=== PATIENT | male | born 1950 | race Caucasian/White ===

== ENCOUNTER 2016-05-25 08:00 | Day surgery (SDC) | payer OTHER ==
[2016-05-25] MEDS ORDERED: PROPOFOL 20 ML ONE ×2 (08:03)
[2016-05-25 10:09] VITALS: TEMP 98.2
[2016-05-25 10:22] VITALS: BP 102/54; PULSE 58
== END 2016-05-25 11:07 | disposition home or self-care (01) ==
LOC: FASU-ENDO 08:00
PROVIDERS: ATTEND Internal Medicine Gastroenterology
PROC: 0DJD8ZZ Inspection of Lower Intestinal Tract, Via Natural or Artificial Opening Endoscopic (ICD-10-PCS; principal; 2016-05-25 09:39)
DX: Z12.11 Encounter for screening for malignant neoplasm of colon (principal); Z80.0 Family history of malignant neoplasm of digestive organs

== ENCOUNTER 2022-08-31 07:47 | Day surgery (SDC) | payer BC ==
[2022-08-30 15:44] VITALS: BMI 19.8
[2022-08-31 07:58] VITALS: RESP 20
[2022-08-31] MEDS ORDERED: PROPOFOL 120 ML ONE (07:59)
[2022-08-31] MEDS ORDERED: LIDOCAINE HCL/PF 2% SDV 5ML VIAL ONE (07:59)
[2022-08-31 08:54] VITALS: TEMP 97.2
[2022-08-31 09:07] VITALS: BP 98/68; PULSE 64
== END 2022-08-31 09:05 | disposition home or self-care (01) ==
LOC: FASU-ENDO 07:47
PROVIDERS: ATTEND Internal Medicine Gastroenterology
PROC: 0DJD8ZZ Inspection of Lower Intestinal Tract, Via Natural or Artificial Opening Endoscopic (ICD-10-PCS; principal; 2022-08-31 08:09)
DX: Z12.11 Encounter for screening for malignant neoplasm of colon (principal); Z80.0 Family history of malignant neoplasm of digestive organs

== ENCOUNTER 2022-12-18 17:35 | Emergency (ER) | payer BC, MEDICARE ==
[2022-12-18] MEDS ORDERED: SODIUM CHLORIDE 1,000 ML IV STA ×2 (17:43→18:03)
[2022-12-18] MEDS ORDERED: ACETAMINOPHEN 1000 MG/100 ML BAG IVPB ONE (17:43)
[2022-12-18] MEDS ORDERED: ACETAMINOPHEN INJECTION 100 ML IVPB ONE (17:46)
[2022-12-18 17:54] LABS: HEMATOCRIT 39.8 % (35.4-49); HEMOGLOBIN 13.1 G/dL (11.7-16.9); MCH 30.7 pg (25.7-33.7); MCHC 32.9 g/dl (32.0-35.9); MEAN CELL VOLUME 93.1 fl (80-96); MEAN PLT VOLUME 7.9 fl (7.5-11.1); PLATELET COUNT 520.5 10^3/uL (134-434); RBC 4.27 10^6/uL (4.00-5.60); RDW 14.9 % (11.9-15.9); WHITE BLOOD COUNT 13.5 10^3/uL (4.0-10.8)
[2022-12-18] MEDS ORDERED: AZITHROMYCIN 500 MG TABLET PO ONE (18:12)
[2022-12-18] MEDS ORDERED: AZITHROMYCIN 500 MG TABLET ONE (18:15)
[2022-12-18 18:27] LABS: ALBUMIN 3.9 g/dl (3.4-5.0); BILIRUBIN,TOTAL 0.4 mg/dl (0.2-1); BLOOD UREA NITROGEN 13.1 mg/dl (7-18); CALCIUM 9.1 mg/dl (8.5-10.1); CREATININE 0.8 mg/dl (0.6-1.3); POTASSIUM 3.9 mmol/L (3.5-5.1); SGOT/AST 15.2 U/L (15-37); SGPT/ALT 9.3 U/L (7-52); TOT PROT 6.8 g/dl (6.4-8.2)
[2022-12-18 18:41] VITALS: RESP 18; TEMP 98; BMI 19.3
[2022-12-18 18:57] VITALS: BP 115/79; PULSE 65
== END 2022-12-18 19:13 | disposition home or self-care (01) ==
LOC: FER 17:35
PROC: 3E033NZ Introduction of Analgesics, Hypnotics, Sedatives into Peripheral Vein, Percutaneous Approach (ICD-10-PCS; principal; 2022-12-18)
PROC: 3E0337Z Introduction of Electrolytic and Water Balance Substance into Peripheral Vein, Percutaneous Approach (ICD-10-PCS; 2022-12-18)
DX: R07.9 Chest pain, unspecified (principal); R05.9 Cough, unspecified; J18.9 Pneumonia, unspecified organism; Z20.822 Contact with and (suspected) exposure to COVID-19
CPT/HCPCS: 0241U-QW; 36415; 71045-TC-FY; 80053; 84484; 85027; 93005; 99285-25

== ENCOUNTER 2023-06-16 09:09 | Emergency (ER) | payer BC, MEDICARE ==
[2023-06-16 09:37] VITALS: RESP 20; TEMP 97.5; BMI 18.9
[2023-06-16] MEDS ORDERED: PSEUDOEPHEDRINE HCL 30 MG TABLET ONE (09:42)
[2023-06-16] MEDS ORDERED: MECLIZINE HCL 25 MG TABLET (FP) ONE (09:42)
[2023-06-16] MEDS ORDERED: ALBUTEROL SO4 2.5/IPRATROPIUM 0.5 INH SOL 3 ML VIAL.NEB. NEB ONE ×2 (09:42→13:13)
[2023-06-16] MEDS: SODIUM CHLORIDE 0.9% 1000 ML INFUS.BAG IV ONE (09:55)
[2023-06-16] MEDS: ALBUTEROL SO4 2.5/IPRATROPIUM 0.5 INH SOL 3 ML VIAL.NEB. NEB ONE ×2 (09:55→13:20)
[2023-06-16] MEDS: PSEUDOEPHEDRINE HCL 30 MG TABLET PO ONE (09:56)
[2023-06-16] MEDS: MECLIZINE HCL 25 MG TABLET (FP) PO ONE (09:56)
[2023-06-16 10:38] LABS: HEMATOCRIT 42.5 % (35.4-49); HEMOGLOBIN 14.2 G/dL (11.7-16.9); MCH 30.4 pg (25.7-33.7); MCHC 33.3 g/dl (32.0-35.9); MEAN CELL VOLUME 91.3 fl (80-96); PLATELET COUNT 365.9 10^3/uL (134-434); RBC 4.66 10^6/uL (4.00-5.60); RDW 14.6 % (11.9-15.9); WHITE BLOOD COUNT 9.7 10^3/uL (4.0-10.8)
[2023-06-16 10:54] LABS: ALBUMIN 4.3 g/dl (3.4-5.0); BILIRUBIN,TOTAL 0.5 mg/dl (0.2-1); CALCIUM 9.8 mg/dl (8.5-10.1); POTASSIUM 4.1 mmol/L (3.5-5.1); TOT PROT 7.1 g/dl (6.4-8.2)
[2023-06-16 12:06] LABS: PLATELET ESTIMATE ADEQUATE
[2023-06-16 13:17] VITALS: BP 106/65; PULSE 74
[2023-06-16] MEDS ORDERED: methylPREDNISolone NA SUCC 125 MG/2 ML VIAL IVPB ONE (13:17)
[2023-06-16] MEDS ORDERED: predniSONE 20 MG TABLET (UD) ONE (13:23)
[2023-06-16] MEDS ORDERED: ALBUTEROL SO4 HFA INHALER IH ONE ×2 (13:23→13:35)
[2023-06-16] MEDS: predniSONE 20 MG TABLET (UD) PO ONE (13:26)
== END 2023-06-16 13:36 | disposition home or self-care (01) ==
LOC: FER 09:09
PROC: 3E0F7GC Introduction of Other Therapeutic Substance into Respiratory Tract, Via Natural or Artificial Opening (ICD-10-PCS; principal; 2023-06-16)
PROC: 3E0F7GC Introduction of Other Therapeutic Substance into Respiratory Tract, Via Natural or Artificial Opening (ICD-10-PCS; 2023-06-16)
DX: R05.9 Cough, unspecified (principal); R09.81 Nasal congestion; R42 Dizziness and giddiness; R53.83 Other fatigue; R63.0 Anorexia; R63.4 Abnormal weight loss; J98.01 Acute bronchospasm; J84.9 Interstitial pulmonary disease, unspecified; Z20.822 Contact with and (suspected) exposure to COVID-19
CPT/HCPCS: 0241U-QW; 36415; 71046-TC-FY; 71250-TC; 80053; 84484; 85025; 93005; 99285-25